=== PATIENT | female | born 1965 | race Caucasian/White ===

== ENCOUNTER 2019-05-07 08:37 | Emergency (ER) | payer SELFPAY ==
[~2019-05-07] VITALS: Ht 162.6 cm; Wt 104.5 kg
[2019-05-07 08:42] VITALS: BP 176/97; TEMP 97.5
[2019-05-07] MEDS ORDERED: COZAAR100 MG PO (09:27)
[2019-05-07] MEDS ORDERED: NORVASC 5MG5 MG/TAB PO (09:28)
[2019-05-07] MEDS ORDERED: TESSALON P100 MG/CAP PO (09:34)
[2019-05-07] MEDS ORDERED: ZITHROMAX Z PA250 MG PO (09:34)
[2019-05-07 09:50] VITALS: PULSE 88
== END 2019-05-07 09:50 | disposition home or self-care (01) ==
LOC: COL.ER 08:37
DX: J20.9 Acute bronchitis, unspecified (principal); I10 Essential (primary) hypertension; Z87.891 Personal history of nicotine dependence